=== PATIENT | female | born 1980 | race Caucasian/White ===

== ENCOUNTER 2019-03-20 02:15 | Inpatient (IN) ==
[2019-03-20] MEDS ORDERED: LACTATED RINGER'S 1,000 ML IV PRN (02:26)
[2019-03-20] MEDS ORDERED: OXYTOCIN 30 UNITS/500 ML BAG IV PRN ×2 (02:26→03:35)
[2019-03-20] MEDS ORDERED: OXYTOCIN 30 UNITS/500ML NSS ONE (02:29)
--- NOTE | 2019-03-20 02:46 | History & Physical Report ---
Date of Service March 20, 2019 Assessment & Plan (1) Encounter for supervision of high-risk with elderly multigravida: - tracing Cat II - UDS ordered - Social Service Consult - anticipate History of Present Illness Chief Complaint: labor Primary Care Provider: Soha Alvarez DO The patient is a 38-year-old 2 para 1 with an EDC of 22 March by first trimester ultrasound, who presents in active labor. Patient states the contractions began this evening and increased in intensity, she denies rupture of membranes or vaginal bleeding. The patient's first visit was at 24 weeks gestational age. The patient at that appointment admitted to alcohol use, marijuana use, and methamphetamine use during the . The patient had a positive drug screen for both methamphetamine and marijuana. The patient was counseled on the risks of using these drugs in and counseled to stop. Laboratory values for the show blood type of O+, antibody negative, rubella immune, hepatitis B negative, she had an LGSIL Pap smear with a negative colposcopy, she had a negative cell free DNA screening, she had a normal 1 hour Glucola x2, and a negative third trimester beta strep culture Allergies Allergy/AdvReac Type Severity Reaction Status Date / Time No Known Allergies Allergy Unverified 12/20/18 20:27 Home Medications Home Medications Medication Instructions Recorded Confirmed Type PNV cmb#95-ferrous fumarate-FA 1 tab PO DAILY 12/20/18 12/20/18 History [] Patient History Social History Preferred Language: Icelandic marital status: Single Feels Safe at Home: Yes Smoking Status: Current every day smoker Tobacco Type: cigarettes Cigarettes Per Day: 1/2 Hx Alcohol Use: No Hx Substance Use: Yes substance use type: amphetamines and methamphetamine Physical Exam Constitutional: WD/WN, vitals as above Respiratory: Auscultation: lungs clear to auscultation bilaterally Cardiovascular: RRR, no murmur, no edema Extremities: no calf tenderness Gastrointestinal (Abdomen): gravid, vtx, (+) FHT's, EFW 6 lbs Genitourinary: Cx: Complete/(+)1, AROM clear
[2019-03-20 02:56] LABS: Hematocrit (blood only) 39.3 % (37-47); Mean Corpuscular Volume 86.4 fL (80-100); Mean Platelet Volume 11.9 fL (7.4-10.4); Platelet Count 205 K/uL (130-400); RDW Coefficient of Variation 13.3 % (11.5-14.5); RDW Standard Deviation 42.1 fL (36.4-46.3); Red Blood Count 4.55 M/uL (4.2-5.4); White Blood Count 21.37 K/uL (4.8-10.8)
[2019-03-20 03:01] LABS: Mean Corpuscular Hgb Conc 35.6 g/dL (32-36)
[2019-03-20] MEDS ORDERED: HYDROCORTISONE ACETATE 25 MG SUPP PR PRN (03:35)
[2019-03-20] MEDS ORDERED: SUPERCREAM 0.870% 15 GM JAR EXT PRN (03:35)
[2019-03-20] MEDS ORDERED: ACETAMINOPHEN 325 MG TAB PO PRN (03:35)
[2019-03-20] MEDS ORDERED: BENZOCAINE 20% AER SPR 82.5 GM CAN EXT PRN (03:35)
[2019-03-20] MEDS ORDERED: DIPHTHERIA/TETANUS/PERTUSSIS 0.5 ML SYR/VIAL IM ONE (03:35)
[2019-03-20 03:38] LABS: Base Excess Cord Arterial Bld -4.5 mEq/L (-9-1.8); CO2 Cord Arterial Blood 56 mmHg (39.1-73.5); HCO3 Cord Arterial Blood 24 mmol/L (19.7-28.5); pH Cord Arterial Blood 7.24 (7.1-7.38)
[2019-03-20 03:45] LABS: Base Excess Cord Venous Blood -4.9 mEq/L (-7.7-1.9); Cord Venous Blood HCO3 22 mmol/L (18.4-26.8); Cord Venous Blood PCO2 46 mmHg (30.4-57.2); Cord Venous Blood PO2 23 mmHg (14.1-43.3); Cord Venous Blood pH 7.29 (7.20-7.44)
[2019-03-20 03:53] LABS: Oxygen Sat Cord Arterial Blood < 60.0 % (<60)
[2019-03-20 03:54] LABS: O2 Saturation Cord Venous Bld < 68.0 % (<68)
[2019-03-20 04:20] LABS: Amphetamines+Metham, Urine Neg (Neg); Barbiturates, Urine Neg (Neg); Benzodiazepine, Urine Neg (Neg); Cocaine, Urine Neg (Neg); MDMA (Ecstacy), Urine Neg (Neg); Methadone, Urine Neg (Neg); Opiate, Urine Neg (Neg); Phencyclidine, Urine Neg (Neg)
[2019-03-20] MEDS: IBUPROFEN 600 MG TAB PO PRN ×2 (06:54→11:21)
[2019-03-20] MEDS: PRENATAL VITAMIN 1 TAB PO SCH (07:50)
[2019-03-20] MEDS: DOCUSATE SODIUM 100 MG CAP PO SCH ×2 (07:50→21:13)
--- NOTE | 2019-03-20 08:07 | Delivery Summary ---
DATE OF OPERATION: 03/20/2019 FINDINGS: Viable male with Apgars of 8 and 9. Baby delivered over an intact perineum with probable placental abruption. Cord gases, cord blood sample obtained. Placenta delivered spontaneously. Perineum found to be intact. Estimated blood loss 300 mL. LABOR NOTE: The patient is a 38-year-old 2, para 1 with an EDC of 22 March by first trimester ultrasound who is admitted at 39+ weeks gestational age in active labor. The patient states contractions awoke her at approximately 0100 hours and increased in intensity. She denied vaginal bleeding or leaking of fluid. The patient's first visit was at 24 weeks gestational age in our office. At that time, she admitted to alcohol use, marijuana use, and methamphetamine use. The patient had a positive urine drug screen for methamphetamine. The laboratory values for the show a blood type of O positive, antibody negative, rubella immune, hepatitis B negative. She had negative cell free DNA screening, normal 1 hour Glucola x2, and negative third trimester beta strep culture. Upon admission, the patient was fully dilated at +1 station, artificial rupture of membranes for clear fluid and the patient began her second stage. Bleeding was noted during the second stage consistent with placental abruption. Baby delivered, viable male infant over an intact perineum. Bloody amniotic fluid noted with delivery. Cord was clamped and cut. Cord gases, cord blood samples were obtained. Placenta was delivered spontaneously and sent for pathological evaluation. Inspection of the perineum was found to be intact. Straight cath urine specimen obtained for urine drug screen. Estimated blood loss 300 mL. Sponge and needle count was correct. I attest to the content of the Intraoperative Record and any orders documented therein. Any exception s are noted below.
[2019-03-21 06:50] LABS: Hematocrit (blood only) 35.8 % (37-47); Hemoglobin 12.3 g/dL (12.0-16.0); Mean Corpuscular Hgb Conc 34.4 g/dL (32-36); Mean Corpuscular Volume 87.1 fL (80-100); Mean Platelet Volume 11.8 fL (7.4-10.4); Platelet Count 176 K/uL (130-400); RDW Coefficient of Variation 13.4 % (11.5-14.5); RDW Standard Deviation 42.8 fL (36.4-46.3); Red Blood Count 4.11 M/uL (4.2-5.4); White Blood Count 13.41 K/uL (4.8-10.8)
--- NOTE | 2019-03-21 08:01 | Obstetrical Progress Note ---
Date of Service March 21, 2019 Assessment & Plan (1) Status post vaginal delivery: PPD#1 doing well. Would like to go home. Was seen by adoption social worker and CYS yesterday and there is a plan for CYS to visit the home Wednesday. Reviewed discharge instructions. Subjective Ambulation: ambulating normally Voiding: no voiding problems Passing Gas:: Yes Diet Tolerance:: regular diet Lochia:: Moderate Feeding Type:: breast feeding Review of Systems All systems reviewed & are unremarkable except as noted in HPI & below Physical Exam Gen: AAOx3 NAD CV: RRR L: CTAB Abd: soft, NTTP. Fundus firm, below umbilicus. Ext: no edema Results & Data Vital Signs (Past 12 Hours) Vital Signs Temp Pulse Resp BP 03/21/19 00:25 37 C 66 16 118/72
[2019-03-21] MEDS: DOCUSATE SODIUM 100 MG CAP PO SCH (08:29)
[2019-03-21] MEDS: PRENATAL VITAMIN 1 TAB PO SCH (08:29)
[2019-03-21] MEDS ORDERED: BISACODYL 5 MG TABEC PO SCH (20:00)
== END 2019-03-21 16:14 | disposition home or self-care (01) | DRG 807 ==
LOC: OPB 02:15 → 4S1 02:18 → 4S2 05:38